=== PATIENT | female | born 1985 | race American Indian/Alaskan Native ===

== ENCOUNTER 2017-10-05 08:24 | Day surgery (SDC) | payer MEDICAID ==
[2017-10-01 13:17] VITALS: BMI 34.2
[2017-10-05] MEDS ORDERED: Propofol 10 mg/ml Inj (20 ML) ONE (11:09)
[2017-10-05] MEDS ORDERED: Midazolam 2 MG/2 ML VIAL ONE (11:10)
[2017-10-05] MEDS ORDERED: Rocuronium 10 mg/ml (5 ml) ONE (11:10)
[2017-10-05] MEDS ORDERED: Succinylcholine 200 mg/10 ml Inj IV ONE (11:10)
[2017-10-05] MEDS ORDERED: Neostigmine Methylsulfate 2 MG/2 ML ML IV ONE (11:18)
[2017-10-05] MEDS ORDERED: Lactated Ringer's 1,000 ML IV ONE ×2 (11:20→12:10)
[2017-10-05] MEDS: HYDROmorphone 0.5 mg/0.5 ml ISec IVP PRN ×4 (12:40→13:35)
[2017-10-05] MEDS ORDERED: HYDROmorphone 0.5 mg/0.5 ml ISec ONE ×2 (12:43→13:11)
--- NOTE | 2017-10-05 12:43 | CP.SDSHP ---
Same Day Surgery H & P - History Proposed Procedure: Umbilical hernia repair Pre-Op Diagnosis: umbilical hernia - Previous Medical/Surgical History Pain: 1. - Allergies Allergies: Allergies No Known Allergies Allergy (Verified 05/30/16 18:42) - Physical Exam Vital Signs: Vital Signs 10/05/17 10/05/17 08:53 08:56 Temperature 98.5 F Pulse Rate 74 74 Respiratory 20 Rate Blood Pressure 125/80 O2 Sat by Pulse 99 Oximetry Mental Status: Alert & Oriented x3 Heart: WNL Lungs: WNL GI: WNL - {Optional Preform as Required} Abdomen: Other (umbilical hernia) - Impression Impression: pt ready for umbilical hernia repair Pt. Evaluated Today:Candidate for Anesthesia & Procedure: Yes - Date & Time Date: 10/05/17 Time: 12:44 Short Stay Discharge - Short Stay Discharge Admitting Diagnosis/Reason for Visit: K43.2 Disposition: HOME/ ROUTINE Referrals: Layton Castle MD [Primary Care Provider] - Additional Instructions (Diet, Activity): clear to shower remove dressing no heavy lifting for 4-6 weeks (nothing greater than 20lbs) follow up in clinic in 1 week
--- NOTE | 2017-10-05 12:48 | PCM.SURG1 ---
Surgeon's Initial Post Op Note - Surgeon's Notes Surgeon: Dr Moreland Entry Level Receptionist: Dr Brown PGY3 Type of Anesthesia: General Endo Pre-Operative Diagnosis: umbilical hernia Operative Findings: umbilical hernia Post-Operative Diagnosis: as above Operation Performed: umbilical hernia repair with mesh Specimen/Specimens Removed: umbilical sac Estimated Blood Loss: EBL {In ML}: 5 Blood Products Given: N/A Drains Used: No Drains Post-Op Condition: Good Date of Surgery/Procedure: 10/05/17 Time of Surgery/Procedure: 12:48
[2017-10-05] MEDS ORDERED: Lactated Ringer's 1,000 ML IV SCH (13:00)
[2017-10-05] MEDS ORDERED: Oxycodone/Acetaminophen 5/325 mg Tab PO PRN (13:50)
[2017-10-05] MEDS ORDERED: Oxycodone/Acetaminophen 5/325 mg Tab PO ONE (16:45)
[2017-10-05 16:51] VITALS: O2SAT 96
[2017-10-05 17:49] VITALS: BP 105/66; PULSE 73; RESP 18; TEMP 98.2
--- NOTE | 2017-10-06 11:19 | OP ---
PROCEDURE DATE: SURGEON: Caridad Moreland MD. CONTACT OFFICER: Dr. Brown. ANESTHESIA: General. ANESTHESIA ADMINISTERED BY: Dr. Lundy. PREOPERATIVE DIAGNOSIS Umbilical hernia. POSTOPERATIVE DIAGNOSIS Umbilical hernia. PROCEDURE Umbilical hernia repair with mesh. DESCRIPTION OF OPERATION With the patient in the supine position under adequate general anesthesia, the abdomen was prepped and draped in the usual sterile manner. The patient was noted to have a widened umbilicus with a very small palpable fascial defect and a semicircular infraumbilical incision was made at the lower edge of the umbilicus. The umbilical skin was elevated and after encircling the umbilical stalk, the skin was divided off the stalk. The stalk itself was noted to be elongated consistent with the patient's recent weight loss and the stalk was excised at the level of the fascia to allow visualization of the fascial defect. There was a small amount of omentum adherent within the umbilicus and this was freed up with cautery and repositioned into the peritoneal cavity and circumferential palpation at this point did not reveal any additional adherent viscera. No other hernial defects were identified. A 6-cm Ventrio hernia patch was then positioned into the defect and deployed to completely cover the defect with gentle traction on the straps. The mesh was sutured circumferentially to the edges of the defect using interrupted sutures of 0 Prolene. The base of the umbilical skin was then tacked down to the area of the repair with a 4-0 plain gut suture and closure was performed with running subcuticular suture of 4-0 Monocryl and Dermabond. Dry sterile dressing was applied. The patient tolerated the procedure well and transferred to recovery room in stable condition. Estimated blood loss for the procedure was 5 mL. Caridad Moreland MD
== END 2017-10-05 18:15 | disposition home or self-care (01) ==
LOC: H.OPSURG 08:24
PROVIDERS: ATTEND Specialist
DX: K43.2 Incisional hernia without obstruction or gangrene (principal); G47.30 Sleep apnea, unspecified
CPT/HCPCS: 49585; 88302; C1781; J0330; J0690; J1170; J2001; J2250; J2405; J2704; J2710; J3010; J7030; J7120